=== PATIENT | male | born 1995 | race Asian ===

== ENCOUNTER 2018-04-29 14:56 | Emergency (ER) | payer OTHER ==
[2018-04-29 15:03] VITALS: BP 134/80
--- NOTE | 2018-04-29 15:35 | EDPHY ---
H & P Stated Complaint: Skiing; hit edge of ski w/R hand; contusion ad superficial lac noted Time Seen by Provider: 04/29/18 15:35 HPI/ROS: HPI: This is a 23-year-old male who presents with Chief Complaint: Skiing; hit edge of ski w/R hand; contusion ad superficial lac noted Location: Right hand at the base of the 5th finger Quality: Injury Duration: 2 hr prior to arrival Signs and Symptoms: No bleeding, no radiation, no numbness, no weakness, no tingling, no incontinence, no decreased range of motion, + swelling, + pain, no fever Timing: Acute Severity: 11/29 Context: Patient is right-hand dominant, presents with complaints of accidentally hitting the side of his right hand on the edge of a ski. Patient reports that he felt immediate, constant pain that was tender to touch. He has noted some swelling and bruising to the area. Small abrasion noted from point of impact. Denies LOC/head injury/neck pain/dizziness/nausea/vomiting/amnesia. Modifying Factors: None Comment: ROS: A comprehensive 10 system review of systems is otherwise negative aside from elements mentioned in the history of present illness. MEDICAL/SURGICAL/SOCIAL HISTORY: Medical history: Generally healthy. Does not take any regular medications. Surgical history: Denies Social history: Current every day smoker. CONSTITUTIONAL: Polite and cooperative adult male, awake and alert, no obvious distress HEENT: Atraumatic and normocephalic. NECK: supple EXTREMITIES: 2/2 radial pulses, strength 5/5, right WRIST: Extension to 70, flexion to 80, radial deviation to 20 degree, ulnar deviation to 30, no scaphoid tenderness, no tenderness over ulnar styloid, no tenderness over radial styloid. Right hand shows tenderness at the base of the little finger with mild swelling and bruising. MCP, DIP, DIP joint flexion extension have full range of motion. no deformities, no clubbing, no cyanosis or edema. NEUROLOGICAL: no focal neuro deficits. GCS 15. Light touch sensation intact. SKIN: Warm and dry, no erythema. no rash. Good capillary refill. Source: Patient Exam Limitations: No limitations - Personal History Current Tetanus Diphtheria and Acellular Pertussis (TDAP): Yes - Medical/Surgical History Other PMH: healthy - Social History Smoking Status: Current every day smoker Constitutional: Initial Vital Signs Temperature (C) 36.7 C 04/29/18 15:00 Heart Rate 78 04/29/18 15:00 Respiratory Rate 16 04/29/18 15:00 Blood Pressure 134/80 H 04/29/18 15:00 O2 Sat (%) 97 04/29/18 15:00 O2 Delivery Mode Room Air Allergies/Adverse Reactions: No Known Allergies Allergy (Unverified 04/29/18 15:00) Home Medications: Medication Instructions Recorded oxyCODONE/APAP /325 [Percocet 1 - 2 tab PO Q4H PRN #10 tab 04/29/18 5/325 (*)] Medical Decision Making - Diagnostics Imaging Results: Imaging Impressions Hand X-Ray 04/29/18 15:06 Impression: Oblique mildly displaced proximal right fifth metacarpal fracture. Procedures: Procedure: Splint placement. A right ulnar gutter Ortho Glass splint was applied the Emergency Room signal maintenance technician. After application of the splint I returned and re-examined the patient. The splint was adequately immobilizing the joint and distal to the splint the patient's circulation and sensation was intact. ED Course/Re-evaluation: Right hand x-ray my read shows boxer's fracture; 5th metacarpal shaft with displacement Given Percocet and ice pack applied Ulnar Ortho Glass splint with orthopedic follow-up No signs of neurovascular compromise/tenting of skin/compartment syndrome/ extremities and joints examined above and below area of concern and are neurovascularly intact. This patient was seen under the supervision of my secondary supervising physician. I evaluated care for this patient independently. Discussed this patient with Dr. Packer who did not see the patient. Differential Diagnosis: Differential diagnosis includes but is not limited to fracture, dislocation, nerve injury, tendon injury, sprain. Departure - Departure Disposition: Home, Routine, Self-Care Clinical Impression: Closed boxer's fracture Qualifiers: Encounter type: initial encounter Qualified Code(s): S62.339A - Displaced fracture of neck of unspecified metacarpal bone, initial encounter for closed fracture Fracture, metacarpal shaft Qualifiers: Encounter type: initial encounter Metacarpal bone: fifth Fracture type: closed Fracture alignment: displaced Laterality: right Qualified Code(s): S62.326A - Displaced fracture of shaft of fifth metacarpal bone, right hand, initial encounter for closed fracture Condition: Good Instructions: Boxer Fracture (ED), Splint Care (ED) Additional Instructions: Keep the splint dry and in place until seen by Orthopedics. Take Tylenol 650 mg every 4 hours and/or Ibuprofen 600 mg every 8 hours with food as needed for pain. Use Percocet every 6 hours as needed for severe/break through pain. Do not use Tylenol and Percocet concomitantly. Apply ice for 30 minutes at a time; 2-3 times per day for the next 1-2 days. Follow up with Orthopedics in 5-7 days at which time they will evaluate and recommend with you if conservative management versus surgery is indicated. Referrals: RUBY MCKEON [Other] - As per Instructions Blaze Del Real MD [Medical Doctor] - As per Instructions Prescriptions: oxyCODONE/APAP 5/325 [Percocet 5/325 (*)] 1 - 2 tab PO Q4H PRN #10 tab PRN Reason: Pain, Severe
[2018-04-29] MEDS ORDERED: OXYCODONE/APAP 5/325 TAB PO ONE (15:50)
[2018-04-29] MEDS ORDERED: OXYCODONE/APAP 5/325MG PREPACK#4 BTL TAKEHOME ONE (17:47)
== END 2018-04-29 17:02 | disposition home or self-care (01) ==
PROC: 2W3CX1Z Immobilization of Right Lower Arm using Splint (ICD-10-PCS; principal; 2018-04-29)
DX: S62.326A Displaced fracture of shaft of fifth metacarpal bone, right hand, initial encounter for closed fracture (principal); W22.8XXA Striking against or struck by other objects, initial encounter; Y92.9 Unspecified place or not applicable; Y93.9 Activity, unspecified; Y99.9 Unspecified external cause status